=== PATIENT | female | born 1985 | race Caucasian/White ===

== ENCOUNTER 2016-04-30 18:48 | Emergency (ER) | payer OTHER ==
[2016-04-30 20:42] VITALS: BP 126/85
--- NOTE | 2016-04-30 21:43 | RAD ---
Indication: Right ankle injury. 3 views of the right ankle demonstrates no fracture. No other bone or joint abnormality is noted. IMPRESSION: No fracture of the right ankle is noted.
--- NOTE | 2016-04-30 21:46 | RAD ---
Indication: Right foot injury. 3 views of the right foot demonstrates no fracture. No other bone or joint abnormality is noted. IMPRESSION: No fracture of the right foot is noted.
--- NOTE | 2016-04-30 21:46 | UC ---
Lower Extremity/Ankle HPI - HPI Summary HPI Summary: Playing volleyball iglesia landed on rolled R ankle. Has done this before, it feels like sprains in the past. - History of Current Complaint Chief Complaint: UCLowerExtremity Stated Complaint: RIGHT ANKLE INJURY Time Seen by Provider: 04/30/16 21:21 Hx Obtained From: Patient Hx Last Menstrual Period: 3 WKS ?: No Onset/Duration: Sudden Onset Severity Initially: Moderate Severity Currently: Moderate Aggravating Factor(s): Standing, Ambulation Alleviating Factor(s): Rest Able to Bear Weight: No - using crutches - Allergies/Home Medications Allergies/Adverse Reactions: Allergies Allergy/AdvReac Type Severity Reaction Status Date / Time No Known Allergies Allergy Verified 04/30/16 20:41 Home Medications: Home Medications Ibuprofen [Ibuprofen 200 MG] 800 mg PO ONCE PRN 04/30/16 [History Confirmed ] PMH/Surg Hx/FS Hx/Imm Hx Endocrine History Of: Denies: Diabetes, Thyroid Disease Cardiovascular History Of: Denies: Cardiac Disorders, Hypertension Respiratory History Of: Denies: Asthma Psychological History Of: Reports: Depression - Surgical History Surgical History: Yes Surgery Procedure, Year, and Place: wisdom teeth 2004. [id number] - Family History Known Family History: Positive: Hypertension - Social History Lives: With Family Alcohol Use: Weekly Substance Use Type: None Smoking Status (MU): Former Smoker Type: Cigarettes When Did the Patient Quit Smoking/Using Tobacco: 2008 - Immunization History Most Recent Influenza Vaccination: 11/25 Most Recent Tetanus Shot: 02/26 Most Recent Pneumonia Vaccination: n/a Review of Systems Constitutional: Negative Skin: Negative Eyes: Negative ENT: Negative Respiratory: Negative Cardiovascular: Negative Gastrointestinal: Negative Genitourinary: Negative Motor: Negative Neurovascular: Negative Musculoskeletal: Arthralgia Neurological: Negative Psychological: Negative All Other Systems Reviewed And Are Negative: Yes Physical Exam Triage Information Reviewed: Yes Appearance: Well-Appearing, No Pain Distress, Well-Nourished Vital Signs: Initial Vital Signs Temp 98 F 04/30/16 20:33 Pulse 70 04/30/16 20:33 Resp 18 04/30/16 20:33 BP 126/85 04/30/16 20:33 Pulse Ox 100 04/30/16 20:33 Vital Signs Reviewed: Yes Eye Exam: Normal Eyes: Positive: Conjunctiva Clear ENT Exam: Normal ENT: Positive: Normal ENT inspection, Hearing grossly normal, Pharynx normal, TMs normal Dental Exam: Normal Neck exam: Normal Neck: Positive: Supple, Nontender, No Lymphadenopathy Respiratory Exam: Normal Respiratory: Positive: Chest non-tender, Lungs clear, Normal breath sounds, No respiratory distress, No accessory muscle use Cardiovascular Exam: Normal Cardiovascular: Positive: RRR, No Murmur Musculoskeletal Exam: Other - tender over lateral ligament insertions on R ankle Musculoskeletal: Positive: ROM Limited @ - R ankle Neurological Exam: Normal Neurological: Positive: Alert Psychological Exam: Normal Skin Exam: Normal Lower Extremity Course/Dx - Differential Dx/Diagnosis Provider Diagnoses: R ankle sprain. elevated blood pressure due to pain Discharge - Discharge Plan Condition: Stable Disposition: HOME Patient Education Materials: Ankle Sprain (ED) Forms: *Work Release Referrals: Louise Kumar MD [Primary Care Provider] - Additional Instructions: You can stop using the crutches once you can walk comfortably.
== END 2016-04-30 21:56 | disposition home or self-care (01) ==
LOC: UCCORT 18:48
DX: S93.401A Sprain of unspecified ligament of right ankle, initial encounter (principal); X50.1XXA Overexertion from prolonged static or awkward postures, initial encounter; Y93.68 Activity, volleyball (beach) (court); Y92.318 Other athletic court as the place of occurrence of the external cause; R03.0 Elevated blood-pressure reading, without diagnosis of hypertension; Z87.891 Personal history of nicotine dependence
CPT/HCPCS: 99212; G0463

== ENCOUNTER 2017-02-07 08:45 | Emergency (ER) | payer OTHER ==
[2017-02-07 09:03] VITALS: BP 121/67
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
[2017-02-07] MEDS ORDERED: Ketorolac INJ* 30 MG/ML 1 ML VIAL IM ONE (09:32)
[2017-02-07] MEDS ORDERED: Acetaminophen TAB* 325 MG PO ONE (09:37)
--- NOTE | 2017-02-07 10:34 | RAD ---
INDICATION: Laceration across the bridge of the nose. Fall. Pain at the upper teeth. COMPARISON: No relevant prior exams available on the [facility] for comparison. TECHNIQUE: Multidetector CT base of the skull through mandible without contrast. Multiplanar reformation. REPORT: Soft tissue swelling over the bridge of the nose and nasolabial folds. No loculated soft tissue plane hematoma evident. Unremarkable orbital contents. Comminuted bilateral nasal bone fractures with minimal leftward displacement. The orbital and maxillary sinus margins, zygomatic arches, lamina papyracea, base of the maxilla, and pterygoid plates are intact. The mandible is intact. Normal temporal mandibular joint alignment. No traumatic abnormality of the maxillary or mandibular teeth evident. IMPRESSION: Comminuted bilateral nasal bone fractures with minimal leftward displacement and overlying soft tissue swelling.
--- NOTE | 2017-02-07 10:37 | RAD ---
INDICATION: Laceration to nose after awakening on the bathroom floor. COMPARISON: None. TECHNIQUE: Contiguous axial sections of the brain were obtained from the skull base to the vertex without contrast. FINDINGS: The ventricles, cisterns and sulci are within normal limits. The caceres-white matter differentiation is adequately maintained and there is no sulcal effacement. No significant focal abnormality or mass effect is present. There is no evidence for intracranial hemorrhage. No significant focal osseous abnormality is present. The visualized portion of the paranasal sinuses and mastoid air cells appear clear. IMPRESSION: Normal CT of the brain.
[2017-02-07] MEDS ORDERED: Ketorolac INJ* 60 MG/2 ML VIAL IM ONE (10:48)
[2017-02-07] MEDS ORDERED: HYDROcodone/ACETAMIN 5-325 MG* 1 TAB PO ONE (10:49)
== END 2017-02-07 11:25 | disposition home or self-care (01) ==
LOC: UCCORT 08:45
DX: S02.2XXA Fracture of nasal bones, initial encounter for closed fracture (principal); S06.0X9A Concussion with loss of consciousness of unspecified duration, initial encounter; Z87.891 Personal history of nicotine dependence; W18.11XA Fall from or off toilet without subsequent striking against object, initial encounter; Y92.89 Other specified places as the place of occurrence of the external cause
CPT/HCPCS: 70450; 70486; 96372; 99212; A9270-GY; G0463; J1885

== ENCOUNTER 2017-02-20 10:39 | Day surgery (SDC) | payer OTHER ==
[~2017-02-20 10:39] MED LIST: Buffered Lidocaine 0.9% SYRIN* 5 ML/SYR SYRINGE INTRADERM ONE; DiMENhydriNATE IV* 50 MG/ML VIAL IV PUSH PRN; Famotidine IV* 10 MG/ML 2 ML (20 mg) IV ONE; Morphine INJ* 2 MG/ML 1 ML CARPUJECT IV PRN; Naloxone* 0.4 MG/ML 1 ML VIAL IV PRN; PROCHLORPERAZINE INJ 5 MG/ML 2 ML VIAL IV PRN; Scopolamine 1.5 mg* PATCH TRANSDERM PRN; fentaNYL* 50 MCG/ML 2 ML VIAL (100 MCG VIAL) IV PRN; oxyCODONE/Acetamin 5/325 MG* TAB PO PRN
[2017-02-20] MEDS ORDERED: Famotidine IV* 10 MG/ML 2 ML (20 mg) ONE (10:48)
[2017-02-20] MEDS ORDERED: Midazolam* 1 MG/ML 2 ML VIAL (2 MG) ONE (12:09)
[2017-02-20] MEDS ORDERED: fentaNYL* 50 MCG/ML 2 ML VIAL (100 MCG VIAL) ONE (12:09)
[2017-02-20] MEDS ORDERED: Lidocaine 4% TOPICAL* 50 ML TOP.SOLN ONE (12:42)
[2017-02-20] MEDS ORDERED: Oxymetazoline 0.05% NASAL SPR* 15 ML BTL ONE (12:42)
[2017-02-20 13:56] VITALS: BP 114/69
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
[2017-02-23] MEDS ORDERED: Scopolamine PATCH Remove* 1 NOTE MISC PATCH OFF ONE (06:07)
== END 2017-02-20 14:20 | disposition home or self-care (01) ==
LOC: OR 10:39
PROVIDERS: ATTEND Otolaryngology
DX: S02.2XXA Fracture of nasal bones, initial encounter for closed fracture (principal); W08.XXXA Fall from other furniture, initial encounter; Y92.002 Bathroom of unspecified non-institutional (private) residence as the place of occurrence of the external cause; Z87.891 Personal history of nicotine dependence
CPT/HCPCS: 81025; A9270-GY; J2250; J3010

== ENCOUNTER 2017-08-16 11:45 | Day surgery (SDC) | payer OTHER ==
[~2017-08-16 11:45] MED LIST changes: -DiMENhydriNATE IV* 50 MG/ML VIAL IV PUSH PRN; -Famotidine IV* 10 MG/ML 2 ML (20 mg) IV ONE; -Morphine INJ* 2 MG/ML 1 ML CARPUJECT IV PRN; -Naloxone* 0.4 MG/ML 1 ML VIAL IV PRN; -PROCHLORPERAZINE INJ 5 MG/ML 2 ML VIAL IV PRN; -Scopolamine 1.5 mg* PATCH TRANSDERM PRN; -fentaNYL* 50 MCG/ML 2 ML VIAL (100 MCG VIAL) IV PRN; -oxyCODONE/Acetamin 5/325 MG* TAB PO PRN
[2017-08-16] MEDS ORDERED: Lidocaine 2% PF * 5 ML VIAL ONE (12:01)
[2017-08-16] MEDS ORDERED: Midazolam* 1 MG/ML 2 ML VIAL (2 MG) ONE (12:45)
[2017-08-16] MEDS ORDERED: fentaNYL* 50 MCG/ML 2 ML VIAL (100 MCG VIAL) ONE ×3 (12:45→15:42)
[2017-08-16 12:52] LABS: Hematocrit 37 % (35-47); Hemoglobin 12.3 g/dl (12.0-16.0); Mean Corpuscular HGB Conc 34 g/dl (31-36); Mean Corpuscular Hemoglobin 30 pg (27-31); Mean Corpuscular Volume 88 fL (80-97); Mean Platelet Volume 7.9 um3 (7.4-10.4); Platelet Count 170 10^3/ul (150-450); Red Blood Count 4.12 10^6/ul (4.00-5.40); Red Cell Distribution Width 13 % (10.5-15); White Blood Count 5.4 10^3/ul (3.5-10.8)
[2017-08-16 12:55] LABS: ABS Basophils 0 10^3/ul (0-0.2); ABS Eosinophils 0.2 10^3/ul (0-0.6); ABS Monocytes 0.3 10^3/ul (0-0.8); ABS Neutrophils 3.2 10^3/ul (1.5-7.7); ABS Nucleated RBC 0 10^3/ul; Eosinophil % 2.7 % (0-6); Nucleated Red Blood Cells % 0.1
[2017-08-16] MEDS ORDERED: Scopolamine 1.5 mg* PATCH ONE (12:57)
[2017-08-16] MEDS ORDERED: DOXYcycline IV* 100 MG in NS 0.9% 250 ML* 250 ML IVPB ONE (13:00)
[2017-08-16] MEDS ORDERED: Ondansetron INJ* 2 MG/ML VIAL ONE (13:47)
[2017-08-16] MEDS ORDERED: Ketorolac INJ* 30 MG/ML 1 ML VIAL ONE (13:47)
[2017-08-16] MEDS ORDERED: Dexamethasone IV* 4 MG/ML 1 ML (4 MG) ONE (13:47)
[2017-08-16] MEDS ORDERED: DiMENhydriNATE IV* 50 MG/ML VIAL IV PUSH PRN (13:51)
[2017-08-16] MEDS ORDERED: Acetaminophen TAB* 325 MG PO PRN (13:51)
[2017-08-16] MEDS ORDERED: Naloxone* 0.4 MG/ML 1 ML VIAL IV PRN (13:51)
[2017-08-16] MEDS ORDERED: Misoprostol TAB* 200 MCG ONE (13:52)
[2017-08-16] MEDS ORDERED: Silver Nitrate/Potassium Nitr* 1 EA STICK ONE (13:53)
[2017-08-16] MEDS: fentaNYL* 50 MCG/ML 2 ML VIAL (100 MCG VIAL) IV PRN ×3 (14:25→15:43)
[2017-08-16] MEDS ORDERED: Acetaminophen TAB* 325 MG ONE (14:48)
[2017-08-16 16:05] VITALS: BP 117/71
[2017-08-16] MEDS ORDERED: oxyCODONE/Acetamin 5/325 MG* TAB ONE (16:19)
--- NOTE | 2017-08-17 01:35 | OP ---
DATE OF OPERATION: 08/16/17 - [facility] DATE OF : 81 SURGEON: Caitie Marques MD COIL TAPER: None. PRE-OP DIAGNOSIS: Nine-week MAB, desires surgical management. POST-OP DIAGNOSIS: Nine-week MAB, desires surgical management. OPERATIVE PROCEDURE: Suction, dilation and curettage. FINDINGS: Mildly enlarged uterus, products of conception. ESTIMATED BLOOD LOSS: Minimal. FLUIDS: Crystalloid. SPECIMENS: Products of conception. DRAINS: Bladder drained of urine with a straight cath prior to procedure. DESCRIPTION OF PROCEDURE: After informed consent was signed, the patient was taken to the operating room where she was given general anesthesia that was found to be adequate. She was prepped and draped in the dorsal lithotomy position in a candy cane stirrups. Exam under anesthesia revealed a small uterus. A time-out was performed. Her bladder was drained of urine. Two speculums were then placed into the vagina to expose the cervix and the anterior lip of the cervix was grasped with a single-tooth tenaculum. The cervix was easily dilated until the size 12 curved suction cannula could be inserted. The suction device was turned on and the uterine contents were gently suctioned with a suction curettage. When no more contents were received and a gritty texture was felt on all surfaces of the uterus, good hemostasis was noted and the suction cannula was removed. There was a small amount of bleeding from the cervix, which was stopped with silver nitrate. There was also minimal bleeding coming from within the uterus at that point in time, so 600 mcg of Cytotec was given rectally. Good hemostasis was noted at that time and the uterus was palpated to be small. The patient was cleaned, placed back into supine position, awakened from anesthesia, and taken to the recovery room in stable condition. [id number]/[facility] #: [id number] JENNIE
== END 2017-08-16 16:35 | disposition home or self-care (01) ==
LOC: OR 11:45
PROVIDERS: ATTEND Obstetrics & Gynecology
DX: O02.1 Missed abortion (principal); Z87.891 Personal history of nicotine dependence
CPT/HCPCS: 36415; 85025; 86850; 86900; 86901; 88305; A9270-GY; J1100; J1885; J2250; J2405; J3010

== ENCOUNTER 2017-09-04 13:55 | Emergency (ER) | payer OTHER ==
[2017-09-04 15:14] VITALS: BP 128/65
--- NOTE | 2017-09-04 15:29 | UC ---
Back Pain HPI - HPI Summary HPI Summary: Pt Pt reports that she was walking down wooden stairs yesterday and slipped on bottom stair and fell backwards onto lower neck and mid back and injury to left thumb. Pt reports instant swelling to base of left thumb and now has c/o back and neck stffness, sore muscles, and left thumb pain and bruising. - History of Current Complaint Chief Complaint: UCGeneralIllness Stated Complaint: BACK,THUMB INJURIES (WC) Time Seen by Provider: 09/04/17 15:11 Hx Obtained From: Patient Hx Last Menstrual Period: UNKNOWN ?: No - had D& C on 08/16/17 Onset/Duration: Gradual Onset, Lasting Hours Timing: Constant Severity Initially: Mild Severity Currently: Moderate Pain Intensity: 7 Character: Dull, Aching, Stiffness Aggravating Factor(s): Movement Alleviating Factor(s): Nothing Associated Signs And Symptoms: Positive: Bruising - base of left thumb - Risk Factors AAA Risk Factors: Negative TAD Risk Factors: Negative Cauda Equina Risk Factors: Negative Epidural Abscess Risk Factors: Negative - Allergies/Home Medications Allergies/Adverse Reactions: Allergies Allergy/AdvReac Type Severity Reaction Status Date / Time No Known Allergies Allergy Verified 08/16/17 12:12 Home Medications: Home Medications Ibuprofen 800 mg PO Q8H 09/04/17 [History Confirmed 09/04/17] PMH/Surg Hx/FS Hx/Imm Hx Previously Healthy: Yes - Surgical History Surgical History: Yes Surgery Procedure, Year, and Place: wisdom teeth 2004. [id number]. D&C. CLOSED REDUCTION NASAL FRACTURE - Family History Known Family History: Positive: Hypertension - Social History Occupation: Employed Full-time Lives: With Family Alcohol Use: Occasionally Substance Use Type: None Smoking Status (MU): Former Smoker Type: Cigarettes Amount Used/How Often: smoked 3-4 years 1/2pack per week Have You Smoked in the Last Year: No When Did the Patient Quit Smoking/Using Tobacco: 10-12 years - Immunization History Most Recent Influenza Vaccination: 11/25 Most Recent Tetanus Shot: 02/26 Most Recent Pneumonia Vaccination: n/a Review of Systems Constitutional: Negative Skin: Bruising - left thumb base Eyes: Negative ENT: Negative Respiratory: Negative Cardiovascular: Negative Gastrointestinal: Negative Genitourinary: Negative Motor: Decreased ROM - c/o stiffness with movement Neurovascular: Negative Musculoskeletal: Arthralgia - left thumb, Myalgia - neck and back Neurological: Headache Psychological: Negative Is Patient Immunocompromised?: No All Other Systems Reviewed And Are Negative: Yes Physical Exam Triage Information Reviewed: Yes Appearance: Pain Distress Vital Signs: Initial Vital Signs Temp 98.3 F 09/04/17 15:07 Pulse 74 09/04/17 15:07 Resp 16 09/04/17 15:07 BP 128/65 09/04/17 15:07 Pulse Ox 100 09/04/17 15:07 Vital Signs Reviewed: Yes Eye Exam: Normal ENT Exam: Normal Dental Exam: Normal Neck exam: Normal Neck: Positive: Supple, Nontender Respiratory Exam: Normal Cardiovascular Exam: Normal Musculoskeletal Exam: Normal Musculoskeletal: Positive: Strength Intact, ROM Intact Neurological Exam: Normal Psychological Exam: Normal Skin Exam: Other - left base of thumb Diagnostics - Radiology No standard instances Radiology Interpretation Completed By: Radiologist - spine xrays: IMPRESSION: NEGATIVE EXAMINATION. Left thumb: IMPRESSION: FAINT RADIOLUCENT LINE AT THE BASE OF THE DISTAL PHALANX LIKELY INCIDENTAL ALTHOUGH A FRACTURE CANNOT BE EXCLUDED RECOMMEND CORRELATION WITH POINT TENDERNESS. Back Pain Course/Dx - Differential Dx/Diagnosis Differential Diagnosis/HQI/PQRI: Fracture, Strain, Sprain Provider Diagnoses: back pain. left thumb sprain Discharge - Sign-Out/Discharge Documenting (check all that apply): Patient Departure - Discharge Plan Condition: Stable Disposition: HOME Prescriptions: Cyclobenzaprine TAB* [Flexeril 10 MG TAB*] 10 mg PO TID PRN #12 tab PRN Reason: Pain Patient Education Materials: Finger Sprain (ED), Back Pain (ED) Forms: *Work Release Referrals: Louise Kumar MD [Primary Care Provider] - Jt Bentley MD [Medical Doctor] - As Soon As Possible - Billing Disposition and Condition Condition: STABLE Disposition: Home Attestation Statement User Type: Provider - I was available for consult. This patient was seen by the MOUNA. The patient was not presented to, seen by, or examined by me. -Alli
--- NOTE | 2017-09-04 16:12 | RAD ---
INDICATION: Fall. Pain COMPARISON: November 14, 2009 TECHNIQUE: Routine five-view imaging was performed FINDINGS: Bones: There are no acute bony findings. There are no significant osteoarthritic findings. Craniocervical junction: The odontoid and atlantodental interval are normal. Alignment: Normal Disc spaces: The disc spaces are well-maintained Soft tissues: The prevertebral soft tissues are normal. IMPRESSION: NEGATIVE EXAMINATION.
--- NOTE | 2017-09-04 16:13 | RAD ---
INDICATION: Back pain COMPARISON: None TECHNIQUE: AP and lateral views were obtained . FINDINGS: Bones: There are no acute bony findings. There are no significant osteoarthritic findings. Alignment: There is minor levoscoliosis or this is positional. Disc spaces: The disc spaces are well-maintained Soft tissues: There are no soft tissue abnormalities. IMPRESSION: NO ACUTE BONY FINDINGS.
--- NOTE | 2017-09-04 16:14 | RAD ---
INDICATION: Left thumb injury. TECHNIQUE: 3 views of the left thumb were obtained. FINDINGS: There is diffuse soft tissue swelling. The bones are normal alignment. On one view there is a faint radiolucent line present at the base of the distal phalanx likely incidental although a nondisplaced fracture cannot be excluded. Joint spaces appear maintained. IMPRESSION: FAINT RADIOLUCENT LINE AT THE BASE OF THE DISTAL PHALANX LIKELY INCIDENTAL ALTHOUGH A FRACTURE CANNOT BE EXCLUDED RECOMMEND CORRELATION WITH POINT TENDERNESS.
== END 2017-09-04 16:36 | disposition home or self-care (01) ==
LOC: UCCORT 13:55
DX: S63.602A Unspecified sprain of left thumb, initial encounter (principal); M54.9 Dorsalgia, unspecified; M79.1 Myalgia; W10.8XXA Fall (on) (from) other stairs and steps, initial encounter; Y93.01 Activity, walking, marching and hiking; Y92.9 Unspecified place or not applicable; Z87.891 Personal history of nicotine dependence
CPT/HCPCS: 72050; 72100; 99213; G0463

== ENCOUNTER 2018-06-16 06:08 | Inpatient (IN) | payer OTHER ==
[~2018-06-16 06:08] MED LIST changes: -Buffered Lidocaine 0.9% SYRIN* 5 ML/SYR SYRINGE INTRADERM ONE; +Buffered Lidocaine 1% SYRIN* 1 ML/SYRINGE INTRADERM ONE; +Lactated Ringers 1000 ML Bag* 1,000 ML IV SCH; +Sodium Citrate/Citric Acid* 15 ML UDC PO ONE
[2018-06-16] MEDS ORDERED: ceFOXitin 2 GM IVPREMIX* 2 GM/50 ML BAG IVPB ONE (06:30)
[2018-06-16] MEDS ORDERED: Morphine PF AMP (0.5MG/ML)* 5 MG/10 ML AMP ONE (07:41)
[2018-06-16] MEDS ORDERED: OXYTOCIN* 10 UNITS/ML 1 ML VIAL ONE (07:41)
[2018-06-16] MEDS ORDERED: Dexamethasone IV* 4 MG/ML 1 ML (4 MG) ONE (07:41)
[2018-06-16] MEDS ORDERED: Ondansetron INJ* 2 MG/ML VIAL ONE (07:41)
[2018-06-16] MEDS ORDERED: Acetaminophen IV 1GM/100ML * 1,000 MG/100 ML VIAL IVPB ONE (07:50)
[2018-06-16] MEDS ORDERED: oxyCODONE TAB* 5 MG TAB PO PRN ×2 (07:50→08:39)
[2018-06-16] MEDS ORDERED: Ketorolac INJ* 30 MG/ML 1 ML VIAL IV PRN (07:50)
[2018-06-16] MEDS ORDERED: Scopolamine 1.5 mg* PATCH TRANSDERM PRN (07:50)
[2018-06-16] MEDS ORDERED: fentaNYL* 50 MCG/ML 2 ML VIAL (100 MCG VIAL) IV PRN (07:50)
[2018-06-16] MEDS ORDERED: PROCHLORPERAZINE INJ 5 MG/ML 2 ML VIAL IV PRN ×2 (07:50→08:39)
[2018-06-16] MEDS ORDERED: Naloxone* 0.4 MG/ML 1 ML VIAL IV PRN ×2 (07:50→08:39)
[2018-06-16] MEDS ORDERED: EPHEDrine (Pressors)* 50 MG/ML VIAL ONE (08:22)
[2018-06-16] MEDS ORDERED: Glycopyrrolate IV* 0.2 MG/ML 1 ML VIAL ONE (08:26)
[2018-06-16] MEDS ORDERED: Ondansetron INJ* 2 MG/ML VIAL IV PRN (08:39)
[2018-06-16] MEDS ORDERED: Nalbuphine* 10 MG/ML 1 ML VIAL IV PRN (08:39)
[2018-06-16] MEDS ORDERED: Ibuprofen TAB* 600 MG PO PRN (12:42)
[2018-06-16] MEDS ORDERED: Glycerin ADULT SUPP PR PRN (12:42)
[2018-06-16] MEDS ORDERED: Witch Hazel PAD* JAR TOPICAL PRN (12:42)
[2018-06-16] MEDS ORDERED: Dibucaine 1% 28.35 GM TUBE PR PRN (12:42)
[2018-06-16] MEDS ORDERED: Oxytocin in LR* 20 UNITS/1,000 ML BAG IVPB SCH (13:00)
[2018-06-16] MEDS ORDERED: Lactated Ringers 1000 ML Bag* 1,000 ML IV SCH (13:00)
[2018-06-16] MEDS: Docusate CAP* 100 MG PO SCH ×2 (15:20→22:05)
[2018-06-16] MEDS: Ketorolac INJ* 30 MG/ML 1 ML VIAL IV PRN ×2 (16:14→22:05)
[2018-06-16] MEDS: oxyCODONE TAB* 5 MG TAB PO PRN ×2 (17:46→22:05)
[2018-06-16] MEDS: Simethicone TAB* 80 MG TAB.CHEW PO SCH ×2 (17:46→22:05)
[2018-06-16] MEDS: Acetaminophen TAB* 325 MG PO SCH (17:46)
[2018-06-17] MEDS ORDERED: Acetaminophen TAB* 325 MG PO PRN (00:20)
[2018-06-17] MEDS: oxyCODONE/Acetamin 5/325 MG* TAB PO PRN ×6 (02:02→23:01)
[2018-06-17] MEDS: Ketorolac INJ* 30 MG/ML 1 ML VIAL IV PRN (04:07)
--- NOTE | 2018-06-17 04:08 | OP ---
DATE OF OPERATION: 06/16/18 - ROOM #116 DATE OF : 81 SURGEON: Dr. Maribel Wilcox. GELATIN POWDER MIXER: Ernestine Jones CNM. SECOND PRESS CLIPPER: Devin Gee MD. PRE-OP DIAGNOSIS: Intrauterine , 39 and 2/7 weeks, vertex, desires repeat section and desires permanent sterility. POST-OP DIAGNOSIS: Intrauterine , 39 and 2/7 weeks, vertex, desires repeat section and desires permanent sterility. Delivered. OPERATIVE PROCEDURES: Repeat low transverse section, attempt vacuum extraction x1, and bilateral tubal ligation with fimbriectomy. ESTIMATED BLOOD LOSS: 600 cc. FLUIDS: 1100 cc of crystalloid. URINE OUTPUT: 200 cc of clear yellow urine. FINDINGS: Revealed a vertex female , Apgars 8 at 1 minute, 9 at 5 minutes. No nuchal cord. No meconium. Weight was 8 pounds 6 ounces. Normal- appearing uterus. Normal uterine cavity without evidence of retained membranes or placental tissue. Normal-appearing tubes and ovaries. Normal-appearing placenta. Three-vessel cord manual extracted intact. SPECIMENS: Bilateral portions of tubes. COMPLICATIONS: None apparent. DISPOSITION: Stable to recovery room. DESCRIPTION OF PROCEDURE: The patient was placed in dorsal lithotomy position. The abdomen was prepped and draped in a sterile standard fashion. The patient was identified with the universal protocol for correct position, patient, and procedure. An incision was made around the previous keloid incision. The old keloid scar was excised and the incision was then carried down through to the fascia. Fascia was scored in the midline, extended laterally and superiorly using Griffith scissors. Fascia was through blunt and sharp dissections superiorly and inferiorly with scalpels superiorly and Griffith's inferiorly. The peritoneum was then entered bluntly. The peritoneum was expanded bluntly, directly visualizing bowel and bladder. Bladder blade was inserted. Lower uterine segment was identified. A bladder flap was created through blunt dissection. Bladder blade was reinserted and Allis was used to tent up on the lower uterine segment. Incision was made with the scalpel down to membranes. Incision was extended laterally and superiorly using bandage scissors. Amniotomy was created for clear fluid. Attempt of delivery of head was made x1 and a vacuum was then applied, which popped off and the vacuum was disabled, not able to function. The incision was widened with bandage scissors and the linea alba was incised with bandage scissors. Attempt was then made for delivery of the head again and head delivered. The anterior and posterior shoulder delivered. Cord was then allowed to pulse for 60 seconds. Cord was then clamped, cut, and baby was handed off to silk screen painter, Dr. Arellano. Appropriate cord blood was then obtained. Placenta was then manually extracted and intact. The uterus was exteriorized, wrapped in warm; moist laparotomy sponge, and the uterine cavity was explored and noted to be free of any membranes or placental tissue. The incision itself was reapproximated using 0 Vicryl x2 in a running fashion, then imbricated. At that point, attention was then focused on the tubal ligation. The patient confirmed verbally that she wanted permanent sterilization using tubal ligation. A Светлана was then placed across the left mesosalpinx to incorporate the fimbria. A 2-0 Vicryl was applied in a free fashion and a second stitch was applied in a Preston fashion for complete occlusion of the mesosalpinx and fallopian tube. The specimen was then excised after the end of the tube was visualized and noted to be hemostatic. Attention was then focused on the right fallopian tube. This procedure was then performed on the right side in a standard fashion. Specimens were sent together. Uterus was returned intraabdominally. Pelvic gutters were lavaged. The hysterotomy site was noted to be hemostatic. The suture sites from the bilateral tubal ligation were noted to be hemostatic bilaterally. The peritoneum was then clamped with Светлана's and then reapproximated using 3-0 Vicryl in a running fashion. The subfascial area was visualized and noted to be hemostatic and the fascia itself was reapproximated using 0 Vicryl x2 in a running fashion. Subcu was lavaged. Hemostasis was assured. A fat stitch was placed using 3-0 Vicryl in an interrupted fashion for complete closure of Camper's fascia. The skin was then reapproximated using 4-0 Monocryl in a subcuticular fashion. Mastisol and Steri- Strips were applied. All sponge, instrument and blade counts were correct throughout the case. The patient tolerated the procedure well and went to the recovery room in stable condition. [id number]/[facility] #: [id number] [facility]
[2018-06-17] MEDS: Acetaminophen TAB* 325 MG PO SCH (05:38)
[2018-06-17 07:09] LABS: ABS Lymphocytes 2.4 10^3/ul (1.0-4.8); ABS Monocytes 0.7 10^3/ul (0-0.8); ABS Neutrophils 8.9 10^3/ul (1.5-7.7); Eosinophil % 0.1 %; Hematocrit 31 % (35-47); Hemoglobin 10.2 g/dL (12.0-16.0); Lymphocyte % 19.7 %; Mean Corpuscular HGB Conc 33 g/dL (31-36); Mean Corpuscular Hemoglobin 30 pg (27-31); Mean Corpuscular Volume 89 fL (80-97); Mean Platelet Volume 8.4 fL (7.4-10.4); Nucleated Red Blood Cells % 0.2; Platelet Count 162 10^3/uL (150-450); Red Blood Count 3.45 10^6 /uL (3.70-4.87); Red Cell Distribution Width 14 % (10.5-15); White Blood Count 11.9 10^3/uL (3.5-10.8)
[2018-06-17] MEDS ORDERED: Fluticasone NASAL SPRAY 50MCG* 16 gm SPRAY BTL BOTH NARES PRN (07:15)
[2018-06-17] MEDS: Simethicone TAB* 80 MG TAB.CHEW PO SCH ×4 (08:25→20:57)
[2018-06-17] MEDS: Docusate CAP* 100 MG PO SCH ×3 (08:25→20:57)
[2018-06-17] MEDS: Prenatal Vitamin TAB PO SCH (08:25)
[2018-06-17] MEDS ORDERED: Ferrous Gluconate TAB* 324 MG TAB PO SCH (09:00)
[2018-06-17] MEDS: Ibuprofen TAB* 600 MG PO PRN ×3 (10:39→23:02)
[2018-06-17] MEDS: Cetirizine* 10 MG TAB PO SCH (18:54)
[2018-06-17] MEDS: ESCITALOPRAM 10 MG PO SCH (20:56)
[2018-06-18] MEDS: oxyCODONE/Acetamin 5/325 MG* TAB PO PRN ×4 (03:03→20:04)
[2018-06-18] MEDS: Ibuprofen TAB* 600 MG PO PRN ×4 (05:02→23:52)
[2018-06-18] MEDS: Simethicone TAB* 80 MG TAB.CHEW PO SCH ×4 (09:05→20:54)
[2018-06-18] MEDS: Docusate CAP* 100 MG PO SCH ×3 (09:05→20:54)
[2018-06-18] MEDS: Prenatal Vitamin TAB PO SCH (09:05)
[2018-06-18] MEDS: Cetirizine* 10 MG TAB PO SCH (17:31)
[2018-06-18] MEDS: ESCITALOPRAM 10 MG PO SCH (17:33)
[2018-06-19] MEDS: oxyCODONE/Acetamin 5/325 MG* TAB PO PRN ×3 (00:04→10:14)
[2018-06-19] MEDS ORDERED: Scopolamine PATCH Remove* 1 NOTE MISC PATCH OFF ONE (07:51)
[2018-06-19] MEDS: Ibuprofen TAB* 600 MG PO PRN (08:19)
[2018-06-19] MEDS: Prenatal Vitamin TAB PO SCH (08:20)
[2018-06-19] MEDS: Simethicone TAB* 80 MG TAB.CHEW PO SCH (08:20)
[2018-06-19] MEDS: Docusate CAP* 100 MG PO SCH (08:20)
[2018-06-19 08:47] VITALS: BP 144/79
== END 2018-06-19 10:56 | disposition home or self-care (01) | DRG 540 ==
LOC: MCHOB 06:08
PROVIDERS: ADMIT Obstetrics & Gynecology; ATTEND Obstetrics & Gynecology
PROC: 0UB70ZZ Excision of Bilateral Fallopian Tubes, Open Approach (ICD-10-PCS; 2018-06-16)
PROC: 4A1HXCZ Monitoring of Products of Conception, Cardiac Rate, External Approach (ICD-10-PCS; 2018-06-16)
PROC: 10D00Z1 Extraction of Products of Conception, Low, Open Approach (ICD-10-PCS; principal; 2018-06-16 07:45)
DX: O34.211 Maternal care for low transverse scar from previous cesarean delivery (principal); O99.344 Other mental disorders complicating childbirth; O99.824 Streptococcus B carrier state complicating childbirth; Z3A.39 39 weeks gestation of pregnancy; Z37.0 Single live birth; Z30.2 Encounter for sterilization; Z87.891 Personal history of nicotine dependence; F32.9 Major depressive disorder, single episode, unspecified
CPT/HCPCS: 36415; 85025; 88302; A9270-GY; J0694; J1100; J1885; J2405; J2590